=== PATIENT | male | born 1940 | race Caucasian/White ===

== ENCOUNTER 2024-01-13 12:00 | Inpatient (IN) | payer MEDICARE, BC ==
[2024-01-13] MEDS ORDERED: Furosemide 40 MG (4 mL) VIAL ONE (12:27)
[2024-01-13 12:55] LABS: #Basophils 0.1 10x3/uL (0.0-0.2); #Eosinphils 0.5 10x3/uL (0.0-0.5); #Monocytes 1.8 10x3/uL (0.0-1.1); #Neutrophils 5.7 10x3/uL (1.5-8.4); %Eosinophils 4.9 % (0.0-6.0); %Lymphocytes 21.4 % (18.0-47.0); %Monocytes 17.1 % (0.0-10.0); %Neutrophils 55.3 % (40.0-75.0); Hematocrit 39.3 % (38.8-50.0); Mean Corpuscular HGB CONC 33.1 g/dL (32.0-36.0); Mean Corpuscular Volume 90.6 fl (81.2-95.1); Mean Platelet Volume 10.3 fl (7.4-10.4); Platelet Count 270 10x3/uL (150-450); RBC Distribution Width 13.2 % (11.5-14.5); Red Blood Cell (RBC) Count 4.34 10x6/uL (4.32-5.72); White Blood Cell (WBC) Count 10.3 10x3/uL (3.5-10.5)
[2024-01-13 13:04] LABS: ALT (SGPT) 24 U/L (8-55); AST (SGOT) 20 U/L (5-34); Albumin 4.4 g/dL (3.4-4.8); Alkaline Phosphatase 82 U/L (40-110); Anion Gap 15 mmol/L (10-20); BUN (Urea Nitrogen) 30 mg/dL (8.4-25.7); Bilirubin, Total 0.9 mg/dL (0.2-1.2); Calc. Creatinine Clearance 0 mL/min (70-130); Calcium 8.9 mg/dL (7.8-10.44); Carbon Dioxide 24 mmol/L (23-31); Chloride 103 mmol/L (98-107); Estimated GFR 49; Glucose 87 mg/dL (83-110); Potassium 5.1 mmol/L (3.5-5.1); Protein, Total 7.4 g/dL (5.8-8.1); Sodium 137 mmol/L (136-145)
[2024-01-13 13:38] LABS: Troponin I Less than 0.010 ng/mL (< 0.028)
[2024-01-13] MEDS ORDERED: Acetaminophen 325 MG TAB PO PRN (15:45)
[2024-01-13] MEDS ORDERED: Dextrose 5% in Water 1,000 ML IV PRN (15:49)
[2024-01-13] MEDS ORDERED: Dextrose 50% Abboject 50 ML SYRINGE SLOW IVP PRN (15:49)
[2024-01-13] MEDS ORDERED: Insulin Regular 300 UNITS/3 ML VIAL SC PRN (15:49)
[2024-01-13] MEDS ORDERED: Glucagon 1 MG/ML KIT IM PRN (15:49)
[2024-01-13 16:26] LABS: Magnesium 2.3 mg/dL (1.6-2.6)
[2024-01-13 18:13] VITALS: BMI 29.8
[2024-01-13] MEDS: Enoxaparin 100 MG (1 mL) SYRINGE SC SCH (22:09)
[2024-01-13] MEDS: Atorvastatin Calcium 40 MG TAB PO SCH (22:09)
[2024-01-13] MEDS: Famotidine 20 MG TAB PO SCH (22:10)
[2024-01-13] MEDS: Ramipril 5 MG CAP PO SCH (22:12)
[2024-01-14 03:57] LABS: #Basophils 0.1 10x3/uL (0.0-0.2); #Eosinphils 0.5 10x3/uL (0.0-0.5); #Monocytes 1.2 10x3/uL (0.0-1.1); #Neutrophils 3.4 10x3/uL (1.5-8.4); %Basophils 0.9 % (0.0-2.0); %Eosinophils 7.3 % (0.0-6.0); %Lymphocytes 29.4 % (18.0-47.0); %Monocytes 15.9 % (0.0-10.0); %Neutrophils 46.4 % (40.0-75.0); Hematocrit 37.2 % (38.8-50.0); Hemoglobin 12.4 g/dL (13.5-17.5); Mean Corpuscular HGB CONC 33.3 g/dL (32.0-36.0); Mean Corpuscular Hemoglobin 30.2 pg (27.0-33.0); Mean Corpuscular Volume 90.5 fl (81.2-95.1); Mean Platelet Volume 10.3 fl (7.4-10.4); Platelet Count 225 10x3/uL (150-450); RBC Distribution Width 13.3 % (11.5-14.5); Red Blood Cell (RBC) Count 4.11 10x6/uL (4.32-5.72); White Blood Cell (WBC) Count 7.4 10x3/uL (3.5-10.5)
[2024-01-14 04:04] LABS: INR-International Normal Ratio 1.1; Prothrombin Time 11.4 sec (9.5-12.1)
[2024-01-14 04:10] LABS: ALT (SGPT) 20 U/L (8-55); AST (SGOT) 19 U/L (5-34); Albumin 3.9 g/dL (3.4-4.8); Alkaline Phosphatase 74 U/L (40-110); Anion Gap 13 mmol/L (10-20); BUN (Urea Nitrogen) 28 mg/dL (8.4-25.7); Bilirubin, Total 0.6 mg/dL (0.2-1.2); Calc. Creatinine Clearance 67 mL/min (70-130); Calcium 8.6 mg/dL (7.8-10.44); Carbon Dioxide 23 mmol/L (23-31); Cardiac Risk 3.5 (Less than 4.5); Chloride 107 mmol/L (98-107); Cholesterol 90 mg/dl (< 200 Desired); Estimated GFR 65; Globulin 3.2 g/dL (2.4-3.5); Glucose 91 mg/dL (83-110); HDL Cholesterol 26 mg/dL (>60 Neg Risk); LDL Cholesterol, Calculated 40 mg/dL; Magnesium 2.3 mg/dL (1.6-2.6); Potassium 4.3 mmol/L (3.5-5.1); Protein, Total 7.1 g/dL (5.8-8.1); Sodium 139 mmol/L (136-145); Triglycerides 120 mg/dL (Less than 150)
[2024-01-14] MEDS: Furosemide 40 MG (4 mL) VIAL SLOW IVP SCH (07:45)
[2024-01-14] MEDS: Enoxaparin 100 MG (1 mL) SYRINGE SC SCH (10:57)
[2024-01-14] MEDS: Dronedarone HCl 400 MG TAB PO SCH (10:58)
[2024-01-14] MEDS ORDERED: Lidocaine 1% (PF) 30 ML VIAL ONE (11:00)
[2024-01-14] MEDS ORDERED: PROPOFOL 200 MG/20 ML VIAL ONE (11:00)
[2024-01-14 11:56] VITALS: BP 109/68; TEMP 97.7
[2024-01-14 14:12] LABS: Hemoglobin A1c 6.3 % (4.0-6.0)
[2024-01-14] MEDS ORDERED: Dronedarone HCl 400 MG TAB PO SCH (17:00)
[2024-01-14] MEDS ORDERED: Enoxaparin 100 MG (1 mL) SYRINGE SC SCH (21:00)
[2024-01-14] MEDS ORDERED: Apixaban 5 MG TAB PO SCH (21:00)
[2024-01-14] MEDS ORDERED: Ramipril 5 MG CAP PO SCH ×2 (21:00)
[2024-01-15] MEDS ORDERED: Furosemide 40 MG TAB PO SCH (07:30)
== END 2024-01-14 15:00 | disposition home or self-care (01) | DRG 309 ==
LOC: SUATTDRO 12:00 → CSHERS 12:00 → CSHTELE 15:16
PROVIDERS: ADMIT Internal Medicine; ATTEND Nurse Practitioner Acute Care
PROC: 5A2204Z Restoration of Cardiac Rhythm, Single (ICD-10-PCS; principal; 2024-01-14)
DX: I48.19 Other persistent atrial fibrillation (principal); I13.0 Hypertensive heart and chronic kidney disease with heart failure and stage 1 through stage 4 chronic kidney disease, or unspecified chronic kidney disease; Z91.041 Radiographic dye allergy status; I50.9 Heart failure, unspecified; Z95.1 Presence of aortocoronary bypass graft; Z98.890 Other specified postprocedural states; Z79.899 Other long term (current) drug therapy; Z79.82 Long term (current) use of aspirin; I25.10 Atherosclerotic heart disease of native coronary artery without angina pectoris; Z95.0 Presence of cardiac pacemaker; Z96.653 Presence of artificial knee joint, bilateral; N18.30 Chronic kidney disease, stage 3 unspecified; Z87.891 Personal history of nicotine dependence; E78.5 Hyperlipidemia, unspecified; I34.0 Nonrheumatic mitral (valve) insufficiency; D63.1 Anemia in chronic kidney disease; E11.22 Type 2 diabetes mellitus with diabetic chronic kidney disease
CPT/HCPCS: 36415; 36416; 71045; 80053; 80061; 83036; 83735; 83880; 84443; 84484; 85025; 85610; 92960; 93005; 94762; 96374; J1650; J1940; J2001; J2704